=== PATIENT | male | born 1975 | race Caucasian/White ===

== ENCOUNTER 2017-06-16 20:17 | Emergency (ER) | payer MEDICAID ==
[~2017-06-16] VITALS: Ht 167.6 cm; Wt 90.7 kg
[~2017-06-16 20:17] MED LIST: GABA300C PO; GLU500 PO; METF500T4 PO
[2017-06-16 20:40] VITALS: BP 142/90
[2017-06-16] MEDS ORDERED: fentaNYL 0.05 MG/ML VIAL IM ONE (22:35)
[2017-06-16 23:20] VITALS: BP 121/72
== END 2017-06-16 23:20 | disposition home or self-care (01) ==
LOC: MED 20:17
DX: J11.1 Influenza due to unidentified influenza virus with other respiratory manifestations (principal); R03.0 Elevated blood-pressure reading, without diagnosis of hypertension; J45.909 Unspecified asthma, uncomplicated; E11.9 Type 2 diabetes mellitus without complications; Z79.84 Long term (current) use of oral hypoglycemic drugs
CPT/HCPCS: 36415; 87804; 99284; J3010

== ENCOUNTER 2018-07-29 19:43 | Emergency (ER) | payer MEDICAID ==
[~2018-07-29] VITALS: Ht 167.6 cm; Wt 83.9 kg
[~2018-07-29 19:43] MED LIST changes: +METF-988 PO; -METF500T4 PO
[2018-07-29 20:30] VITALS: BP 139/87
--- NOTE | 2018-07-29 20:45 | NUR ---
Sent back out to [facility]
--- NOTE | 2018-07-29 21:40 | NUR ---
Amb to Bed 3 per self.
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
[2018-07-29] MEDS ORDERED: KETOROLAC 30 MG/ML VIAL IM ONE (21:55)
[2018-07-29] MEDS ORDERED: INSULIN REGULAR, HUMAN 100 UNIT/ML VIAL SUBQ ONE (22:20)
[2018-07-29] MEDS ORDERED: NACL 0.9% 1,000 ML IV ONE (22:20)
[2018-07-29 22:54] LABS: BASOPHILS % (AUTO) 0.1 % (0.0-2.0); EOSINOPHILS # (AUTO) 0.2 K/uL (0-0.4); EOSINOPHILS % (AUTO) 1.6 % (0.0-4.0); HEMATOCRIT 41.4 % (36-52); HEMOGLOBIN 13.5 g/dL (12.0-18.0); LYMPHOCYTES # (AUTO) 3.9 K/uL (2.0-11.5); LYMPHOCYTES % (AUTO) 32.5 % (20.5-51.1); MEAN CORPUSCULAR HEMOGLOBIN 27 pg (27-31); MEAN CORPUSCULAR HGB CONC 33 g/dL (33-37); MEAN CORPUSCULAR VOLUME 82.5 fL (80-94); MONOCYTES # (AUTO) 0.9 K/uL (0.8-1.0); MONOCYTES % (AUTO) 7.7 % (1.7-9.3); NEUTROPHILS # (AUTO) 6.9 K/uL (1.8-7.7); NEUTROPHILS % (AUTO) 58.1 % (42.2-75.2); PLATELET COUNT (AUTO) 265 K/uL (140-450); RED BLOOD CELL COUNT(AUTO) 5.02 MIL/uL (4.20-6.10); RED CELL DISTRIBUTION WIDTH 13.4 % (11.6-13.7); WHITE BLOOD COUNT (AUTO) 11.9 K/uL (4.8-10.8)
[2018-07-29 23:17] LABS: ANION GAP 12.3 (8-16); CARBON DIOXIDE 26.8 mmol/L (21-32); CREATININE 1.2 mg/dL (0.7-1.3); POTASSIUM 4.1 mmol/L (3.5-5.1)
[2018-07-29 23:24] LABS: ALBUMIN 3.4 g/dL (3.4-5.0); TOTAL BILIRUBIN 0.5 mg/dL (0.0-1.0)
--- NOTE | 2018-07-30 00:30 | NUR ---
PT SITTING UP IN BED, VITALS STABLE
[2018-07-30 01:19] LABS: APPEARANCE,URINE CLEAR (CLEAR); COLOR,URINE YELLOW (YELLOW)
[2018-07-30 01:20] LABS: BILIRUBIN,URINE NEGATIVE (NEGATIVE); BLOOD, URINE TRACE (NEGATIVE); UGLUCOSE 4+ (NEGATIVE)
[2018-07-30 01:21] LABS: LEUKOCYTE ESTERASE ,URINE NEGATIVE (NEGATIVE); NITRITE, URINE NEGATIVE (NEGATIVE); RBC,URINE 0-5 (RARE) /HPF (0-5); WBC,URINE 0-5 (RARE) /HPF (0-5)
[2018-07-30 01:35] VITALS: BP 139/87
--- NOTE | 2018-07-30 01:35 | NUR ---
Patient discharged with v/s stable. Written and verbal after care instructions given and explained. Patient alert, oriented and verbalized understanding of instructions. Ambulatory with steady gait. All questions addressed prior to discharge. ID band removed. Patient advised to follow up with PMD. Rx of Ibuprofen and Flexeril given. Patient educated on indication of medication including possible reaction and side effects. Opportunity to ask questions provided and answered.
== END 2018-07-30 01:35 | disposition home or self-care (01) ==
LOC: MED 19:43
DX: E11.65 Type 2 diabetes mellitus with hyperglycemia (principal); M54.5 Low back pain; J45.909 Unspecified asthma, uncomplicated; Z79.84 Long term (current) use of oral hypoglycemic drugs; Z79.899 Other long term (current) drug therapy; V89.2XXA Person injured in unspecified motor-vehicle accident, traffic, initial encounter; Y93.89 Activity, other specified; Y92.89 Other specified places as the place of occurrence of the external cause; Y99.8 Other external cause status
CPT/HCPCS: 36415; 80053; 81001; 82948; 85025; 96361; 96372; 96374; 99283; J1815; J1885; J7030

== ENCOUNTER 2019-03-16 19:12 | Emergency (ER) | payer MEDICAID ==
[~2019-03-16] VITALS: Ht 167.6 cm; Wt 131.5 kg
[2019-03-16 19:21] VITALS: BP 123/83
--- NOTE | 2019-03-16 19:30 | NUR ---
PT AMBULATED TO LOBBY WITH VSS.
--- NOTE | 2019-03-16 19:53 | NUR ---
PT AMBULATED TO BED 02.
--- NOTE | 2019-03-16 20:00 | NUR ---
43 Y/O M PRESENTS TO ER C/O OF DIZZINESS AND LEFT SIDE OF FACE SWELLING SINCE LAST NIGHT. PT AWAKE AND ALERT. RESPONDING TO QUESTIONS APPROPRIATELY. PAIN LEVEL 8/10 ACHING TO LEFT SIDE OF FACE. PT FEELS LEFT SIDED WEAKNESS. DENIES ANY NUMBNESS OR TINGLING TO EXTREMITIES. 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 DENIES ANY VISION CHANGES. PT HAS BUMB ON LEFT SIDE OF FOREHEAD. PER PT "THIS BUMB HAS BEEN HERE FOR ABOUT 7 YEARS." PT TOOK CYCLOBENZAPRINE 10MG TAB FOR CHRONIC BACK PAIN, THAT PROVIDES SOME PAIN RELIEF. PT CURRENTLY HAS BACK BRACE IN PLACE FROM HOME. SAFETY MEASURES IN PLACE. WAITING FOR ERMD TO EVALUATE PT. ALLERGIES: NONE MED HX: DM, CVA 10-15 YEARS AGO, AND CHRONIC BACK PAIN
[2019-03-16] MEDS ORDERED: ACETAMINOPHEN EXTRA STRENGTH 500 MG TAB PO ONE (20:45)
--- NOTE | 2019-03-16 20:55 | NUR ---
PT TAKEN TO CT VIA WHEELCHAIR
--- NOTE | 2019-03-16 21:10 | NUR ---
PT RETURNED FROM CT
--- NOTE | 2019-03-16 21:36 | NUR ---
PT STATES PAIN RELIEF, PAIN LEVEL DECREASED TO 6/10
[2019-03-16 21:55] VITALS: BP 107/62
--- NOTE | 2019-03-16 21:55 | NUR ---
Patient discharged with v/s stable. Written and verbal after care instructions given and explained. Patient alert, oriented and verbalized understanding of instructions. Ambulatory with steady gait. All questions addressed prior to discharge. ID band removed. Patient advised to follow up with PMD. Rx of ACETAMINOPHEN WAS given. Patient educated on indication of medication including possible reaction and side effects. Opportunity to ask questions provided and answered.
== END 2019-03-16 21:55 | disposition home or self-care (01) ==
LOC: MED 19:12
DX: S09.90XA Unspecified injury of head, initial encounter (principal); D17.0 Benign lipomatous neoplasm of skin and subcutaneous tissue of head, face and neck; J45.909 Unspecified asthma, uncomplicated; E11.9 Type 2 diabetes mellitus without complications; Z86.73 Personal history of transient ischemic attack (TIA), and cerebral infarction without residual deficits; Z79.899 Other long term (current) drug therapy; W01.198A Fall on same level from slipping, tripping and stumbling with subsequent striking against other object, initial encounter; Y92.89 Other specified places as the place of occurrence of the external cause; Y93.89 Activity, other specified; Y99.8 Other external cause status
CPT/HCPCS: 70450; 99284

== ENCOUNTER 2019-05-12 18:39 | Emergency (ER) | payer MEDICAID ==
[~2019-05-12] VITALS: Ht 167.6 cm; Wt 90.7 kg
--- NOTE | 2019-05-12 18:57 | NUR ---
Patient ambulated to bed 4. RN evaluating patient at bedside.
[2019-05-12 19:04] VITALS: BP 116/85
--- NOTE | 2019-05-12 19:10 | NUR ---
PATIENT ASSESSMENT COMPLETED AT THIS TIME. PATIENT LAYING DOWN IN BED. BED IN LOW LOCKED POSITION, SIDE RAIL UP. MOTHER AT BEDSIDE. NO NEEDS STATED AT THIS TIME.
--- NOTE | 2019-05-12 19:42 | NUR ---
flu swab collected at this time.
[2019-05-12] MEDS ORDERED: ONDANSETRON 4 MG/2 ML VIAL IVP ONE (20:00)
[2019-05-12] MEDS ORDERED: ACETAMINOPHEN EXTRA STRENGTH 500 MG TAB PO ONE (20:00)
[2019-05-12] MEDS ORDERED: NACL 0.9% 1,000 ML IV ONE (20:00)
[2019-05-12 20:54] LABS: APPEARANCE,URINE CLEAR (CLEAR); BILIRUBIN,URINE NEGATIVE (NEGATIVE); BLOOD, URINE NEGATIVE (NEGATIVE); COLOR,URINE YELLOW (YELLOW); LEUKOCYTE ESTERASE ,URINE NEGATIVE (NEGATIVE); NITRITE, URINE NEGATIVE (NEGATIVE); PH,URINE 5.5 (5.0-9.0); UGLUCOSE 3+ (NEGATIVE)
--- NOTE | 2019-05-12 21:28 | NUR ---
LABS WERE DRAWN AND SENT TO LAB
[2019-05-12 21:33] LABS: RBC,URINE 0-5 /HPF (0-5)
[2019-05-12 21:34] LABS: WBC,URINE 0-5 /HPF (0-5)
[2019-05-12 21:44] LABS: BASOPHILS % (AUTO) 0.3 % (0.0-2.0); EOSINOPHILS % (AUTO) 0.4 % (0.0-4.0); HEMOGLOBIN 14.2 g/dL (12.0-18.0); LYMPHOCYTES # (AUTO) 2.2 K/uL (2.0-11.5); LYMPHOCYTES % (AUTO) 23.3 % (20.5-51.1); MEAN CORPUSCULAR HEMOGLOBIN 28 pg (27-31); MEAN CORPUSCULAR HGB CONC 33 g/dL (33-37); MEAN CORPUSCULAR VOLUME 84.9 fL (80-94); MONOCYTES % (AUTO) 10.7 % (1.7-9.3); NEUTROPHILS # (AUTO) 6.3 K/uL (1.8-7.7); NEUTROPHILS % (AUTO) 65.3 % (42.2-75.2); PLATELET COUNT (AUTO) 208 K/uL (140-450); RED BLOOD CELL COUNT(AUTO) 5.07 MIL/uL (4.20-6.10); RED CELL DISTRIBUTION WIDTH 13.4 % (11.6-13.7); WHITE BLOOD COUNT (AUTO) 9.6 K/uL (4.8-10.8)
[2019-05-12 21:52] LABS: ANION GAP 13.1 (8-16); CARBON DIOXIDE 23.5 mmol/L (21-32); CREATININE 1.1 mg/dL (0.7-1.3); POTASSIUM 3.6 mmol/L (3.5-5.1)
[2019-05-12 22:59] VITALS: BP 109/89
--- NOTE | 2019-05-12 22:59 | NUR ---
Patient discharged with v/s stable. Written and verbal after care instructions given and explained. Patient alert, oriented and verbalized understanding of instructions. Ambulatory with steady gait. All questions addressed prior to discharge. ID band removed. Patient advised to follow up with PMD. Rx of ZOFRAN, BENTYL, LOMOTIL given. Patient educated on indication of medication including possible reaction and side effects. Opportunity to ask questions provided and answered.
== END 2019-05-12 22:59 | disposition home or self-care (01) ==
LOC: MED 18:39
DX: R11.10 Vomiting, unspecified (principal); R19.7 Diarrhea, unspecified; E11.65 Type 2 diabetes mellitus with hyperglycemia; E86.0 Dehydration; J45.909 Unspecified asthma, uncomplicated; Z86.73 Personal history of transient ischemic attack (TIA), and cerebral infarction without residual deficits; Z79.84 Long term (current) use of oral hypoglycemic drugs
CPT/HCPCS: 36415; 80053; 81001; 83690; 85025; 87804; 96361; 96374; 99283; J2405

== ENCOUNTER 2019-08-10 16:34 | Emergency (ER) | payer MEDICAID ==
[~2019-08-10] VITALS: Ht 167.6 cm; Wt 81.6 kg
[2019-08-10 16:52] VITALS: BP 106/71
[2019-08-10] MEDS ORDERED: TETRACAINE HCL/PF 0.5% OPTH 4 ML BTL ONE (16:56)
[2019-08-10] MEDS ORDERED: FLUORESCEIN OPTH STRIP 1 MG ONE (16:56)
[2019-08-10] MEDS ORDERED: TETRACAINE HCL/PF 0.5% OPTH 4 ML BTL RIGHT EYE ONE (17:00)
[2019-08-10] MEDS ORDERED: FLUORESCEIN OPTH STRIP 1 MG RIGHT EYE ONE (17:00)
--- NOTE | 2019-08-10 17:00 | NUR ---
OLSON LAMP AT BEDSIDE
[2019-08-10] MEDS ORDERED: TETRACAINE HCL/PF 0.5% OPTH 4 ML BTL OP ONE (17:30)
[2019-08-10] MEDS ORDERED: FLUORESCEIN OPTH STRIP 1 MG OP ONE (17:30)
--- NOTE | 2019-08-10 17:30 | NUR ---
PT AMBULATING WITH SEFERINO NEVILLE FOR VISUAL ACUITY.
--- NOTE | 2019-08-10 17:45 | NUR ---
SONI CAMPBELL AT BEDSIDE EVALUATING PT.
--- NOTE | 2019-08-10 18:25 | NUR ---
Patient discharged with v/s stable. Written and verbal after care instructions given and explained regarding corneal abrasion. Patient alert, oriented and verbalized understanding of instructions. Ambulatory with steady gait. All questions addressed prior to discharge. ID band removed. Patient advised to follow up with PMD. Rx of gentamicin eye drop and ibuprofen given. Patient educated on indication of medication including possible reaction and side effects. Opportunity to ask questions provided and answered.
[2019-08-10 18:32] VITALS: BP 106/71
== END 2019-08-10 18:25 | disposition home or self-care (01) ==
LOC: MED 16:34
DX: S05.01XA Injury of conjunctiva and corneal abrasion without foreign body, right eye, initial encounter (principal); J45.909 Unspecified asthma, uncomplicated; E11.9 Type 2 diabetes mellitus without complications; Z86.73 Personal history of transient ischemic attack (TIA), and cerebral infarction without residual deficits; Z79.84 Long term (current) use of oral hypoglycemic drugs; Z79.899 Other long term (current) drug therapy; X58.XXXA Exposure to other specified factors, initial encounter; Y93.89 Activity, other specified; Y92.89 Other specified places as the place of occurrence of the external cause; Y99.8 Other external cause status
CPT/HCPCS: 99283

== ENCOUNTER 2020-04-27 15:02 | Emergency (ER) | payer MEDICAID ==
[~2020-04-27] VITALS: Ht 167.6 cm; Wt 86.2 kg
[2020-04-27 15:40] VITALS: BP 123/73
--- NOTE | 2020-04-27 15:40 | NUR ---
PT SENT BACK OUT SIDE TO [facility].
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
--- NOTE | 2020-04-27 16:40 | NUR ---
COVID SWAB COLLECTED AND SENT TO LAB
--- NOTE | 2020-04-27 16:43 | NUR ---
Patient discharged with v/s stable. Written and verbal after care instructions given and explained. Patient verbalized understanding. Ambulatory with steady gait. All questions addressed prior to discharge. Advised to follow up with PMD.
[2020-04-27 16:52] VITALS: BP 123/73
== END 2020-04-27 16:43 | disposition home or self-care (01) ==
LOC: MED 15:02
DX: U07.1 COVID-19 (principal); F41.9 Anxiety disorder, unspecified; E11.9 Type 2 diabetes mellitus without complications; I63.9 Cerebral infarction, unspecified; J45.909 Unspecified asthma, uncomplicated; Z79.899 Other long term (current) drug therapy
CPT/HCPCS: 99283; U0003